=== PATIENT | male | born 1985 | race Caucasian/White ===

== ENCOUNTER → 2016-09-12 | Outpatient (CLI) | payer OTHER ==
[~2016-09-12] MED LIST: IOHEXOL 300 MG/ML 75 ML VIAL IV ONE
--- NOTE | 2016-09-12 11:14 | RAD ---
CT scan of the neck with contrast 09/12/2016 Clinical history: Right jaw pain and swelling for 7 weeks despite antibiotic therapy. Technique: After the intravenous administration of 75 cc of Omnipaque 300, contiguous, 3 mm axial sections were obtained to the neck. One or more of the following individualized dose reduction techniques were utilized for this study: 1. Automated exposure control. 2. Adjustment of the mA and/or kV according to patient size. 3. Use of iterative reconstruction technique. Findings: No previous imaging studies are available for comparison. Small mucous retention cysts are seen within the right maxillary sinus. These measure 5 to 8 mm in size. The mucosal structures of the nasopharynx, oropharynx, hypopharynx and larynx are within normal limits. The thyroid gland is slightly heterogeneous. No significant focal abnormality of the thyroid gland is seen. A 3 mm punctate calcification is seen within the posterior aspect of the right parotid gland inferiorly. This may represent a right parotid sialolith. No additional calculus is seen. No calculus is seen within the right parotid duct. No obstruction is seen. The left parotid gland and submandibular glands are within normal limits. No abnormal fluid collection is seen. No cervical lymphadenopathy is noted. The osseous structures are grossly intact. Impression: 3 mm calcification is seen within the right parotid gland which may represent a sialolith. No acute abnormality is seen.
== END | disposition home or self-care (01) ==
LOC: CT 07:20
PROVIDERS: ATTEND Physician Assistant
DX: K11.20 Sialoadenitis, unspecified (principal)
CPT/HCPCS: 70491; Q9967